=== PATIENT | male | born 1960 | race Hispanic/Latino ===

== ENCOUNTER 2017-05-19 07:56 | Day surgery (SDC) | payer BC ==
[2017-05-19] MEDS ORDERED: WATER FOR IRRIG STERILE IR ONE (08:31)
[2017-05-19] MEDS ORDERED: WATER FOR IRRIG STERILE ONE (08:31)
[2017-05-19] MEDS ORDERED: NACL 0.9% 1000 ML 1,000 ML IV SCH (09:00)
--- NOTE | 2017-05-19 09:35 | Anesthesia Consultation ---
Anesthesia Consult and Med Hx Date of service: 05/19/17 - Airway Anesthetic Teeth Evaluation: Good, Partials ROM Head & Neck: Adequate Mental/Hyoid Distance: Adequate Mallampati Class: Class II Intubation Access Assessment: Probably Good - Pulmonary Exam CTA: Yes - Cardiac Exam Cardiac Exam: RRR - Pre-Operative Health Status ASA Pre-Surgery Classification: ASA3 Proposed Anesthetic Plan: MAC - Cardiovascular System Hx Hypertension: Yes Hx Coronary Artery Disease: Yes (multiple stents) Hx Heart Attack/AMI: Yes Hx Angina: No (Pt is active with no chest pain or tightness) - Endocrine Hx Non-Insulin Dependent Diabetes: Yes
--- NOTE | 2017-05-19 09:36 | Anesthesia Day of Surgery ---
Anesthesia Day of Surgery - Day of Surgery Patient Examined: Yes Patient H&P Reviewed: Yes Patient is NPO: Yes Beta Blockers: No (only medication is asa)
[2017-05-19] MEDS ORDERED: DIPRIVAN 10 MG/ML IV ONE ×2 (10:03)
--- NOTE | 2017-05-19 10:50 | Operative Report ---
Operative Report Operative Report: Date of procedure: 05/19/2017 Procedure: Colonoscopy with Snare polypectomy and multiple polyp ablations. Attending physician: Anurag Kramer MD Supervisor Composing Room: Anurag Kramer MD Indication: Patient is a 56-year-old male who presented for colorectal cancer screening. A colonoscopy is done to evaluate patient so that treatment may be directed based the findings. Patient also has history of anorectal discomfort and episodic rectal bleeding in the past. Consent: Informed consent was obtained after advising the patient and family regarding nature of this procedure, its indications, potential benefits as well as possible complications including but not limited to bleeding perforation and adverse reaction to medication, infection as well as other cardiopulmonary complications. An informed written and verbal consent was then obtained after due opportunity was provided for questions and answers. Monitoring: Patient was monitored continuously with pulse oximetry and electrocardiographic recordings as well as blood pressure recordings. Vital signs remained stable throughout this procedure with no untoward events. Preoperative assessment: Patient was assessed immediately prior to this procedure for capacity to tolerate monitored anesthesia care and moderate sedation as well as general anesthesia. Patient's ASA classification is 2, Mallampati class is 2, Hyomental distance is 3. Instrument: EarLensn videocolonoscope Medications: Propofol given intravenously in divided doses. For details please refer to anesthesia records. Description of procedure: Patient was placed in the left lateral decubitus position after achieving sedation, a digital rectal examination was performed following which the colonoscope was introduced into the anal verge and advanced to the cecum which was identified by the cecal valve, the appendiceal orifice, as well as by the cecal strap and direct transillumination. The colonoscope was subsequently withdrawn with careful inspection of all mucosal surfaces. Patient tolerated this procedure well and was subsequently taken to the recovery room. The following findings were noted. Findings: The patient was poor. Patient had mild diverticulosis of sigmoid and descending colon. There was a semi-pedunculated ascending colon polyp measuring approximately 1 cm. It was removed snare electrocautery and retrieved. There were multiple diminutive polyps in the cecum which were ablated. On the retroflex view at the anal verge, patient had prominent internal hemorrhoids. Impression: Ascending colon polyp status post snare polypectomy. Cecal polyps status post ablation Diverticular disease of colon Retained stool Internal hemorrhoids. Plan: A colonoscopy in one year due to poor colonoscopy preparation Follow pathology report High-fiber diet Consider hemorrhoidal band ligation in the near future if patient remains symptomatic from hemorrhoids.
--- NOTE | 2017-05-19 11:04 | Discharge Summary ---
Short Stay Discharge Plan Activity: advance as tolerated Weight Bearing Status: Weight Bear as Tolerated Diet: regular Additional Instructions: Post Sedation D/C Instructions When you return home you may resume your regular diet unless otherwise directed. Go directly home from the hospital and rest quietly. You may resume normal activities tomorrow. Do NOT drive, return to work, operate any machinery or make any important personal or business decisions today. Do NOT drink any alcohol or take nerve or sleeping drugs. They add to the effects of the medicine still present in your body. Forms: Post Sedation D/C Instructions
--- NOTE | 2017-05-19 11:18 | Post Anesthesia Evaluation ---
- Post Anesthesia Evaluation Patient Participated: Yes Airway Patent: Yes Stable Respiratory Function: Yes Temp > 96.8F: Yes Pain Manageable: Yes Adequeate Hydration: Yes Anesthesia Complications: No ([id number]
[2017-05-19 11:40] VITALS: BP 172/99
== END 2017-05-19 07:57 | disposition home or self-care (01) ==
LOC: GIO 07:56
PROVIDERS: ATTEND Internal Medicine Gastroenterology
DX: Z12.11 Encounter for screening for malignant neoplasm of colon (principal); D12.2 Benign neoplasm of ascending colon; K63.5 Polyp of colon; K57.30 Diverticulosis of large intestine without perforation or abscess without bleeding; K64.8 Other hemorrhoids; I25.2 Old myocardial infarction; E11.9 Type 2 diabetes mellitus without complications; I10 Essential (primary) hypertension; I25.10 Atherosclerotic heart disease of native coronary artery without angina pectoris; Z98.890 Other specified postprocedural states; Z79.899 Other long term (current) drug therapy; Z95.5 Presence of coronary angioplasty implant and graft; Z79.82 Long term (current) use of aspirin
CPT/HCPCS: 45385; 45388; 82962; 88305; J2704; J7030